=== PATIENT | female | born 1970 | race Caucasian/White ===

== ENCOUNTER 2022-09-12 09:34 | Day surgery (SDC) | payer SELFPAY ==
[2022-09-06 10:53] VITALS: BMI 28.3
[~2022-09-12 09:34] MED LIST: ACETAMINOPHEN 325 MG TABLET (FP) PO PRN; DOCUSATE SODIUM 100 MG CAPSULE (FP) PO PRN; HYDROmorphone HCl 2 MG/ML VIAL IVPB PRN; ONDANSETRON 4 MG/2 ML VIAL IVPUSH PRN; oxyCODONE HCL 5 MG TABLET PO PRN
[2022-09-12] MEDS ORDERED: PROPOFOL 20 ML ONE ×2 (11:58→15:59)
[2022-09-12] MEDS ORDERED: DEXAMETHASONE SOD PHOSPHATE 4 MG/1 ML VIAL ONE (11:58)
[2022-09-12] MEDS ORDERED: ceFAZolin SODIUM 1 GM VIAL ONE (11:58)
[2022-09-12] MEDS ORDERED: ONDANSETRON 4 MG/2 ML VIAL ONE ×2 (11:58→16:03)
[2022-09-12] MEDS ORDERED: LIDOCAINE HCL/PF 2% SDV 5ML VIAL ONE (11:58)
[2022-09-12] MEDS ORDERED: MIDAZOLAM HCL 2 MG/2 ML SINGLE DOSE VIAL ONE ×2 (11:59→16:01)
[2022-09-12] MEDS ORDERED: ROCURONIUM BROMIDE 50 MG/5 ML SYRINGE ONE (12:00)
[2022-09-12] MEDS ORDERED: BENZOCAINE/MENTH/CETYLPYRD CL 1 EACH LOZENGE MM ONE (12:07)
[2022-09-12] MEDS ORDERED: EPINEPHrine/PF 1 MG/1 ML (1:1,000) AMPULE ONE (12:10)
[2022-09-12] MEDS ORDERED: LIDOCAINE HCL 1%, 10 MG/ML (20ML VIAL) ONE (12:10)
[2022-09-12] MEDS ORDERED: BACITRACIN ZINC 15 GM TUBE TOPICAL OINTMENT ONE ×2 (12:10)
[2022-09-12] MEDS ORDERED: HYDROmorphone HCL/PF 1 MG/ML VIAL ONE ×2 (14:48→16:22)
[2022-09-12] MEDS ORDERED: FENTANYL CITRATE/PF 50 MCG/ML VIAL ONE (16:57)
[2022-09-12] MEDS ORDERED: ACETAMINOPHEN 1000 MG/100 ML BAG IVPB ONE (16:57)
[2022-09-12] MEDS ORDERED: ONDANSETRON 4 MG/2 ML VIAL IVPUSH PRN (16:57)
[2022-09-12] MEDS ORDERED: KETOROLAC TROMETHAMINE 30 MG/1 ML VIAL IVPUSH ONE (16:58)
[2022-09-12] MEDS ORDERED: ACETAMINOPHEN INJECTION 100 ML IVPB ONE (16:58)
[2022-09-12] MEDS ORDERED: LACTATED RINGERS SOLUTION 1,000 ML IV SCH (17:00)
[2022-09-12] MEDS ORDERED: KETOROLAC TROMETHAMINE 30 MG/1 ML VIAL ONE (17:10)
[2022-09-12] MEDS: CEFAZOLIN 1 GM in DEXTROSE 5%-WATER - 50 ML IVPB SCH ×2 (18:09→21:04)
[2022-09-12] MEDS: LACTATED RINGERS SOLUTION 1,000 ML IV SCH (18:09)
[2022-09-12 20:10] VITALS: RESP 18
[2022-09-13] MEDS: oxyCODONE HCL 5 MG TABLET PO PRN ×3 (02:08→13:36)
[2022-09-13] MEDS: CEFAZOLIN 1 GM in DEXTROSE 5%-WATER - 50 ML IVPB SCH ×2 (04:15→08:21)
[2022-09-13] MEDS: LACTATED RINGERS SOLUTION 1,000 ML IV SCH (08:23)
[2022-09-13] MEDS ORDERED: ENOXAPARIN NA (PORCINE) 40 MG/0.4 ML DISP.SYRIN SQ ONE (13:00)
[2022-09-13 14:10] VITALS: BP 110/64; PULSE 86; TEMP 98.9
== END 2022-09-13 14:44 | disposition home or self-care (01) ==
LOC: FASU 09:34 → FM/S 18:04 → FASU 09-13 14:44
PROVIDERS: ATTEND Surgery
CPT/HCPCS: 84703; 94760